=== PATIENT | female | born 1960 | race Asian ===

== ENCOUNTER 2016-03-29 14:36 | Emergency (ER) | payer MEDICARE, MEDICAID ==
[2016-03-29] MEDS ORDERED: MORPHINE SULFATE INJ 2 MG/ML DISP.SYRIN IV ONE (15:00)
[2016-03-29] MEDS ORDERED: MORPHINE SULFATE INJ 4 MG/ML DISP.SYRIN ONE (15:05)
[2016-03-29 15:32] LABS: BASOPHILS % (AUTO) 0.3 % (0.0-2.0); DIFF TOTAL % 100 %; EOSINOPHILS # (AUTO) 0.1 /CMM (0.0-0.7); EOSINOPHILS % (AUTO) 0.7 % (0.0-6.0); HEMATOCRIT 42 % (33-45); HEMOGLOBIN 13.6 g/dL (11.5-14.8); LYMPHOCYTES # (AUTO) 1.2 /CMM (0.8-4.8); LYMPHOCYTES % (AUTO) 8.4 % (20.0-44.0); MEAN CORPUSCULAR HEMOGLOBIN 30 PG (26.0-33.0); MEAN CORPUSCULAR HGB CONC 33 g/dl (31.0-36.0); MEAN CORPUSCULAR VOLUME 91 fL (82-100); MONOCYTES # (AUTO) 0.4 /CMM (0.1-1.30); MONOCYTES % (AUTO) 2.5 % (2.0-12.0); NEUTROPHILS # (AUTO) 12.9 /CMM (1.8-8.9); NEUTROPHILS % (AUTO) 88.1 % (43.0-81.0); PLATELET COUNT (AUTO) 272 /CMM (150-450); RED BLOOD CELL COUNT(AUTO) 4.57 MIL/uL (4.0-5.2); WHITE BLOOD COUNT (AUTO) 14.7 K/uL (4.3-11.0)
[2016-03-29 15:40] LABS: CREATININE 0.5 mg/dL (0.6-1.3); INR 0.97 (0.87-1.13); POTASSIUM 4.2 mmol/L (3.5-5.1); PROTHROMBIN TIME 10.5 SECS (9.5-12.7)
[2016-03-29 17:06] VITALS: BP 148/85
[2016-03-29] MEDS ORDERED: IV SET PRIMARY PUMP SET 1 EA INFUS.SET MC ONE (17:07)
[2016-03-29] MEDS ORDERED: CEFTRIAXONE 1GM BAG (ER ONLY) 50 ML IV ONE ×2 (17:07→17:30)
[2016-03-29] MEDS ORDERED: IV SET PRIMARY 1 EA INFUS.SET MC ONE (17:10)
[2016-03-29] MEDS ORDERED: IV NS 0.9% 1,000 ML ONE (17:10)
[2016-03-29] MEDS ORDERED: IV NS 0.9% 500 ML IV ONE (17:10)
[2016-03-29] MEDS ORDERED: IV NS 0.9% 1,000 ML BAG IV ONE (17:30)
== END 2016-03-29 17:39 | disposition short-term general hospital (02) ==
LOC: ER 14:38
DX: J96.00 Acute respiratory failure, unspecified whether with hypoxia or hypercapnia (principal); R91.8 Other nonspecific abnormal finding of lung field; D72.829 Elevated white blood cell count, unspecified
CPT/HCPCS: 36415; 71010; 80048; 83605; 85025; 85730; 87040 ×2; 96365; 96375; 99285; A4606; J0696 ×2; J2270; J7030 ×2; J7040 ×2; Z7610